=== PATIENT | female | born 1980 | race Caucasian/White ===

== ENCOUNTER 2020-11-30 12:00 | Emergency (ER) | payer OTHER ==
[~2020-11-30] VITALS: Ht 154.9 cm; Wt 70.3 kg
[2020-11-30 12:10] VITALS: BP_SYST 143
--- NOTE | 2020-11-30 12:10 | NUR ---
Placed in room 3 . Placed on security monitor, blood pressure machine and pulse oximeter. To gown for exam. Side rails up.
[2020-11-30] MEDS ORDERED: KETOROLAC TROMETHAMINE 60 MG/2 ML VIAL IM ONE (12:15)
--- NOTE | 2020-11-30 12:15 | NUR ---
Pt bib friend via wheelchair with c/o mechanical trip and fall, right ankle injury. Pain is 10/10 when moving it, reports unable to apply pressure. Swelling noted. V/S stable, no acute distress.
--- NOTE | 2020-11-30 12:15 | NUR ---
ER Dr. Garcia at bedside examining patient.
--- NOTE | 2020-11-30 12:20 | NUR ---
Radiology at bedside for ankle x-ray
[2020-11-30] MEDS ORDERED: HYDR-3917 PO (13:33)
[2020-11-30] MEDS ORDERED: IBUP-1971 PO (13:33)
[2020-11-30 13:37] VITALS: BP_SYST 143
--- NOTE | 2020-11-30 13:38 | NUR ---
Patient given written and verbal discharge instructions and verbalizes understanding. ER MD discussed with patient the results and treatment provided. Patient in stable condition. ID arm band removed. Rx of IBUPROFEN AND NORCO given. Patient educated on pain management and to follow up with PMD. Pain Scale 0/10. Opportunity for questions provided and answered. Medication side effect fact sheet provided.
== END 2020-11-30 13:38 | disposition home or self-care (01) ==
LOC: SED 12:00
DX: S93.401A Sprain of unspecified ligament of right ankle, initial encounter (principal); X50.1XXA Overexertion from prolonged static or awkward postures, initial encounter; Y93.89 Activity, other specified; Y92.89 Other specified places as the place of occurrence of the external cause; Y99.8 Other external cause status
CPT/HCPCS: 73610; 96372; 99283; J1885